=== PATIENT | male | born 1955 | race Caucasian/White ===

== ENCOUNTER 2017-01-07 19:10 | Inpatient (IN) | payer OTHER ==
[~2017-01-07] VITALS: Ht 175.3 cm; Wt 104.0 kg
[~2017-01-07 19:10] MED LIST: CARV25TA79 PO; DABIGATRAN ETEXILATE PO; DIGO125T73 PO; ENAL20TA77 PO; FURO40TA4 PO; IBUP800T25 PO; METH10TA97 PO; RANO10002 PO; SITA1TAB3 PO; SPIR25TA67 PO
[2017-01-07] MEDS ORDERED: SODIUM CHLORIDE 0.9% 500 ML BAG IV* STA (19:56)
[2017-01-07] MEDS ORDERED: VECURONIUM 100 MG in DEXTROSE 5% 100 ML IV ONE (19:56)
[2017-01-07] MEDS ORDERED: MIDAZOLAM (DRIP) 50 mg/50 mL 50 ML IV SCH (20:00)
[2017-01-07] MEDS ORDERED: FENTAnyl 50 MCG/ML VIAL IV PRN (20:00)
[2017-01-07] MEDS ORDERED: DOPamine-D5W 1.6 MG/ML 250 ML IV STA (20:03)
[2017-01-07] MEDS ORDERED: AMIODARONE 150MG/D5W BOLUS IV* STA (20:03)
[2017-01-07] MEDS ORDERED: AMIODARONE 900MG/D5W DRIP 500 ML IV STA (20:03)
[2017-01-07 20:24] LABS: ADD SCAN DIFF NO
[2017-01-07 20:27] LABS: BASOPHILS % 0.4 % (0.0-2.0); EOSINOPHILS # 0.1 10^3/ul (0.0-0.5); EOSINOPHILS % 0.6 % (0.0-7.0); HEMATOCRIT 37.1 % (42.0-52.0); HEMOGLOBIN 10.8 g/dl (14.0-18.0); LYMPHOCYTES # 4.8 10^3/ul (0.8-2.9); LYMPHOCYTES % 45.7 % (15.0-51.0); MEAN CORPUSCULAR HEMOGLOBIN 29.3 pg (29.0-33.0); MEAN CORPUSCULAR HGB CONC 29.1 g/dl (32.0-37.0); MEAN CORPUSCULAR VOLUME 100.8 fl (82.0-101.0); MEAN PLATELET VOLUME 10.1 fl (7.4-10.4); MONOCYTE # 0.7 10^3/ul (0.3-0.9); MONOCYTES % 7.1 % (0.0-11.0); NEUTROPHIL # 4.6 10^3/ul (1.6-7.5); NEUTROPHILS % 43.7 % (39.0-77.0); NUCLEATED RED BLOOD CELLS # 0.1 10^3/ul (0.0-0.0); PLATELET COUNT 408 10^3/UL (140-415); RED BLOOD COUNT 3.68 10^6/ul (4.70-6.10); RED CELL DISTRIBUTION WIDTH 15.9 % (11.5-14.5); WHITE BLOOD COUNT 10.5 10^3/ul (4.8-10.8)
[2017-01-07 20:37] LABS: ALBUMIN 3.4 g/dl (3.3-4.9); CHLORIDE 97 mmol/L (97-110); INR 3.56; PROTIME 36.2 Sec (12.2-14.2); PT RATIO 2.8; SODIUM 136 mmol/L (135-144)
[2017-01-07 20:39] LABS: CREATININE 3.07 mg/dl (0.61-1.24)
[2017-01-07 20:40] LABS: ALANINE AMINOTRANSFERASE 63 IU/L (13-69); ALKALINE PHOSPHATASE 218 IU/L (42-121); ANION GAP 31 (8-16); ASPARTATE AMINO TRANSFERASE 99 IU/L (15-46); BILIRUBIN,INDIRECT 0.2 mg/dl (0-1.1); BILIRUBIN,TOTAL 0.2 mg/dl (0.2-1.3); BLOOD UREA NITROGEN 66 mg/dl (7-20); CARBON DIOXIDE 15 mmol/L (21-31); GLUCOSE 165 mg/dl (70-220); PHOSPHORUS 8.8 mg/dl (2.5-4.9); TOTAL PROTEIN 7.6 g/dl (6.1-8.1)
[2017-01-07 20:41] LABS: CALCIUM 8.6 mg/dl (8.4-10.2); MAGNESIUM 2.7 mg/dl (1.7-2.5)
[2017-01-07 20:52] LABS: TROPONIN-I 0.048 ng/ml (0.00-0.12)
[2017-01-07 20:54] LABS: AADO2 Arterial 572.2 mmHg (7.0-24.0); Allen Test ACCEPTAB; Arterial Base Excess -24.8 mmol/L (-3.0-3); Arterial COHb 0.3 % (0.0-3.0); Arterial Fraction of Oxyhgb 75.7 % (93.0-99.0); Arterial HCO3 10.6 mmol/L (22.0-26.0); Arterial MetHb 0.5 % (0.0-1.5); Arterial Total Hemglobin 12.1 g/dl (12.0-18.0); MODE VENT - AC
[2017-01-07 21:04] LABS: ACETAMINOPHEN < 10.0 ug/ml (10.0-30.0); POTASSIUM 6.7 mmol/L (3.5-5.1); SALICYLATE < 1.0 mg/dl (5.0-30.0)
[2017-01-07] MEDS ORDERED: NA BICARBONATE 8.4% 50 ML SYG IV STA (21:06)
[2017-01-07] MEDS ORDERED: DEXTROSE 50% 50 ML SYRINGE IV STA (21:06)
[2017-01-07] MEDS ORDERED: CA GLUCONATE (GM) 10% 10ML INJ IV STA (21:06)
[2017-01-07] MEDS ORDERED: INSULIN REGULAR, HUMAN 100 UNIT/1 ML 3ML VIAL IV STA (21:06)
--- NOTE | 2017-01-07 21:26 | RADRPT ---
PROCEDURE: XR Chest. CLINICAL INDICATION: Cardiac arrest TECHNIQUE: AP view of the chest was obtained. COMPARISON: None available FINDINGS: ET tube is present with the tip 6 cm above the diaz. There are sternotomy wires and mediastinal c lips. There are atherosclerotic calcifications of the thoracic aorta. Cardiac silhouette is moder ately enlarged. There is vascular congestion and bilateral opacities suggestive of edema/congestive failure. There may be superimpose consolidation at the right lung base. There is a small to moderate right pleural effusion. IMPRESSION: Satisfactory ET tube placement. Cardiomegaly, with vascular congestion and bilateral opacities suggestive of edema/congestive failur e. Possible superimposed consolidation at the right lung base. Small to moderate right pleural effusion. RPTAT: HESO .Ramy Duckworth MD, Date Time Electronically viewed and signed by .Ramy Duckworth MD, on 01/07/2017 21:25 .O/
[2017-01-07 21:33] LABS: ETHANOL < 10.0 mg/dl
[2017-01-07] MEDS ORDERED: NORepinephrine 8MG/250 ML (PMX 250 ML IV STA (21:47)
[2017-01-07] MEDS ORDERED: SODIUM CHLORIDE 0.9% 1L BAG IV* STA (21:47)
[2017-01-07] MEDS ORDERED: CEFEPIME 2GM/50 ML (PMX) 50 ML IVPB STA (21:47)
[2017-01-07 21:54] LABS: PLATELET COUNT 437 10^3/UL (140-415)
[2017-01-07 21:58] LABS: INR 3.73; PROTIME 37.5 Sec (12.2-14.2); PT RATIO 2.9
[2017-01-07] MEDS ORDERED: CLINDAMYCIN 600 MG/D5W (PMX) 50 ML IVPB SCH (22:00)
[2017-01-07] MEDS ORDERED: VANCOMYCIN 1 GM (PMX) 250 ML IVPB ONE (22:00)
[2017-01-07 22:24] LABS: FIBRIN SPLIT PRODUCT >10 and <40 ug/ml (<10)
[2017-01-07 22:25] LABS: ADD UMIC YES; URINE BILIRUBIN (Dip) 1+ (NEGATIVE); URINE BLOOD (Dip) 3+ (NEGATIVE); URINE COLOR DK. YELLOW (YELLOW); URINE GLUCOSE (Dip) NEGATIVE (NEGATIVE); URINE KETONES (Dip) TRACE (NEGATIVE); URINE LEUKOCYTE ESTERASE (Dip) NEGATIVE (NEGATIVE); URINE NITRITE (Dip) NEGATIVE (NEGATIVE); URINE TOTAL PROTEIN (Dip) 2+ (NEGATIVE); URINE UROBILINOGEN (Dip) 0.2 E.U./dL (0.1-1.0)
--- NOTE | 2017-01-07 22:39 | ERA ---
ER Documentation Chief Complaint Date/Time DATE: 01/07/17 TIME: 22:20 Chief Complaint cardiac arrest/ respiratory arrest HPI 61-year-old male history of cardiomyopathy, cardiac disease, on anticoagulants who presents with cardiac arrest. EMS gives most of the report. It appears the patient had an in-home cardiac arrest. The patient was asystolic upon arrival. They had return of spontaneous circulation upon arrival to the ER however patient rapidly lost pulses upon movement into the room. Remainder of HPI is very limited given critical nature of the patient. ROS Critical patient Medications Home Meds Reported Medications [Dabigatran etexilate] No Conflict Check, 150 MG PO BID 04/26/12 Digoxin (Digoxin) 125 Mcg Tablet, 125 MCG PO DAILY 04/26/12 Ibuprofen* (Ibuprofen*) 800 Mg Tablet, 800 MG PO BID 04/26/12 Ranolazine* (Ranexa*) 1,000 Mg Tab.sr.12h, 1000 MG PO BID 04/26/12 Spironolactone* (Aldactone*) 25 Mg Tablet, 25 MG PO DAILY 04/26/12 Furosemide* (Furosemide*) 40 Mg Tablet, 40 MG PO DAILY 04/26/12 Carvedilol* (Carvedilol*) 25 Mg Tablet, 25 MG PO BID 04/26/12 Sitagliptin Phos-Metformin Hcl (Janumet) 1 Tab Tablet, 1 TAB PO AM 04/26/12 Enalapril (Enalapril) 20 Mg Tablet, 20 MG PO BID 04/26/12 Methimazole* (Tapazole*) 10 Mg Tablet, 10 MG PO BID 04/26/12 Allergies Allergies: Coded Allergies: No Known Allergy (Unverified , 04/25/12) PMhx/Soc History of Surgery: Yes (2 stent placement approx 9 years ago) Anesthesia Reaction: No Hx Neurological Disorder: No Hx Cardiac Disorders: Yes (VA, HTN, hyperlipidemia) Hx Psychiatric Problems: No Hx Miscellaneous Medical Probl: No Hx Alcohol Use: No Hx Substance Use: No Hx Tobacco Use: No (hx 2-3 packs/day. Quit 3-4 months ago) Physical Exam Vitals Vital Signs Date Time Temp Pulse Resp B/P Pulse Ox O2 Delivery O2 Flow Rate FiO2 01/07/17 19:15 98.1 0 0 196/159 0 Physical Exam General: Unresponsive Head: Normocephalic, atraumatic Eyes: Fixed and dilated pupils ENT: Moist mucous membranes, significant vomitus in the oral cavity Neck: Supple, no lymphadenopathy Respiratory: No spontaneous respiratory activity Cardiovascular: No spontaneous cardiac activity Abdominal: Soft, non-protuberant, no pulsatile mass : Deferred MSK: No spontaneous motor activity Neurologic: No spontaneous neurologic activity Skin: No evidence of trauma Result Diagram: 01/07/17212901/07/171941 Results 24 hrs Laboratory Tests Test 01/07/17 19:42 01/07/17 19:56 01/07/17 21:30 Acetaminophen Level < 10.0ug/ml Activated Partial Thromboplast Time 90.0Sec Pending Alanine Aminotransferase (ALT/SGPT) 63IU/L Albumin 3.4g/dl Albumin/Globulin Ratio 0.80 Alkaline Phosphatase 218IU/L Anion Gap 31 Aspartate Amino Transf (AST/SGOT) 99IU/L Basophils # 0.010^3/ul Basophils % 0.4% Blood Urea Nitrogen 66mg/dl Calcium Level 8.6mg/dl Carbon Dioxide Level 15mmol/L Chloride Level 97mmol/L Creatinine 3.07mg/dl Direct Bilirubin 0.00mg/dl Eosinophils # 0.110^3/ul Eosinophils % 0.6% Ethyl Alcohol Level < 10.0mg/dl Globulin 4.20g/dl Glucose Level 165mg/dl Hematocrit 37.1% Hemoglobin 10.8g/dl INR International Normalized Ratio 3.56 3.73 Indirect Bilirubin 0.2mg/dl Lymphocytes # 4.810^3/ul Lymphocytes % 45.7% Magnesium Level 2.7mg/dl Mean Corpuscular Hemoglobin 29.3pg Mean Corpuscular Hemoglobin Concent 29.1g/dl Mean Corpuscular Volume 100.8fl Mean Platelet Volume 10.1fl Monocytes # 0.710^3/ul Monocytes % 7.1% Neutrophils # 4.610^3/ul Neutrophils % 43.7% Nucleated Red Blood Cells # 0.110^3/ul Nucleated Red Blood Cells % 1.0/100WBC Phosphorus Level 8.8mg/dl Platelet Count 09614^3/UL 41087^3/UL Potassium Level 6.7mmol/L Prothrombin Time 36.2Sec Pending Prothrombin Time Ratio 2.8 2.9 Red Blood Count 3.6810^6/ul Red Cell Distribution Width 15.9% Salicylates Level < 1.0mg/dl Sodium Level 136mmol/L Total Bilirubin 0.2mg/dl Total Protein 7.6g/dl Troponin I 0.048ng/ml White Blood Count 10.510^3/ul Arterial Blood HCO3 10.6mmol/L Arterial Blood Base Excess -24.8mmol/L Arterial Blood Oxygen Saturation 76.3mmHG Nicho Test ACCEPTAB Arterial Blood Gas Puncture Site Right Radial Arterial Blood Carboxyhemoglobin 0.3% Arterial Blood Date Drawn 01/07/2017 8:48:05 PM Arterial Blood Methemoglobin 0.5% Arterial Blood pCO2 (Temp correct) 73.3mmhg Arterial Blood pH (Temp corrected) 6.777 Arterial Blood pO2 (Temp corrected) 67.5mmHG Blood Gas A-a O2 Differential 572.2mmHg Blood Gas Actual Respiration Rate 16 Blood Gas Critical Value Read Back Kathie WARD MD Blood Gas Modality VENT - AC Blood Gas Notified Time 01/07/2017 8:53:53 PM Blood Gas Notified Whom MG Blood Gas Respiration Rate 16.0 Blood Gas Specimen Source Blood arterial Blood Gas Temperature 37.0C Blood Gas Tidal Volume 550.0mL FiO2 100.0% Oxyhemoglobin Percent 75.7% Total Hemoglobin 12.1g/dl D-Dimer Pending Fibrinogen 431.0mg/dl Plasma Fibrin Degradation Products Pending Thrombin Time Pending Current Medications Medications (Trade) Dose Ordered Sig/Aidee Route PRN Reason Start Time Stop Time Status Last Admin Dose Admin Sodium Chloride (NS) 500 ml ONCE STAT IV* 01/07/17 19:56 01/07/17 20:04 DC Fentanyl 25 mcg 25 mcg Q10M PRN IV SEDATION 01/07/17 20:00 Midazolam HCl 50 ml @ 2 mls/hr ONCE IV 01/07/17 20:00 Vecuronium Superior/Dextrose (Norcuron/D5W) 100 ml @ 0 mls/hr Q0M ONCE IV 01/07/17 19:56 01/07/17 20:04 DC Amiodarone HCl 100 ml 100 ml ONCE STAT IV* 01/07/17 20:03 01/07/17 20:05 DC Amiodarone HCl 500 ml @ 0 mls/hr ONCE STAT IV 01/07/17 20:03 01/07/17 20:05 DC Dopamine HCl/ Dextrose 250 ml @ 0 mls/hr ONCE STAT IV 01/07/17 20:03 01/07/17 20:05 DC 01/07/17 22:12 Insulin Human Regular (Humulin R) 10 unit ONCE STAT IV 01/07/17 21:06 01/07/17 21:07 DC 01/07/17 21:24 Dextrose (D50w Syringe) 50 ml ONCE STAT IV 01/07/17 21:06 01/07/17 21:07 DC 01/07/17 21:24 Sodium Bicarbonate (Na Bicarb 8.4% Syg) 50 ml ONCE STAT IV 01/07/17 21:06 01/07/17 21:07 DC 01/07/17 21:24 Calcium Gluconate (Ca Gluc) 1 gm ONCE STAT IV 01/07/17 21:06 01/07/17 21:07 DC 01/07/17 21:25 Sodium Chloride 3100 ml 3,100 ml BOLUS OVER 2 HOURS STAT IV* 01/07/17 21:47 01/07/17 21:51 DC 01/07/17 21:57 Norepinephrine 250 ml @ 7.5 mls/hr ONCE STAT IV 01/07/17 21:47 01/09/17 07:06 01/07/17 22:09 Cefepime HCl 50 ml @ 100 mls/hr ONCE STAT IVPB 01/07/17 21:47 01/07/17 22:16 DC Vancomycin HCl 250 ml @ 125 mls/hr ONCE ONCE IVPB 01/07/17 22:00 01/07/17 23:59 Clindamycin HCl/ Dextrose (Cleocin 600 Mg/ D5W (Pmx)) 50 ml @ 50 mls/hr ONCE IVPB 01/07/17 22:00 01/07/17 22:59 Procedures/MDM EKG, MONITORS, & DIAGNOSTIC IMAGING: EKG #1: EKG: I reviewed and interpreted a 12-lead EKG. Rhythm: Junctional rhythm Ectopy: None Intervals: No abnormalities ST segments: No elevations or depressions T waves: No contiguous inversions EKG #2: EKG: I reviewed and interpreted a 12-lead EKG. Rhythm: Wide-complex bradycardia Ectopy: None ST segments: No elevations or depressions T waves: No contiguous inversions Chest x-ray: I reviewed and interpreted a 1 view of the chest Mediastinum: No enlargement Cardiac silhouette: cardiomegaly Airspace: Interstitial process and pulmonary edema bilaterally, no pneumothorax Bones: No evidence of fracture PROCEDURES: Intubation Note: Indication: Airway protection Consent: This was an emergent situation, implied consent was observed RSI Medications: Etomidate 20 mg, Rocuronium 100 mg Tube size: 7.5 Secured at: 22 at the lip Procedure: Patient had a difficult airway given significant vomitus within the airway itself. Endotracheal intubation was performed using the Glidescope. Visualization of the arytenoids was obtained with suctioning. I was able to pass the endotracheal tube through the cords. The tube was then secured. The patient had bilateral breath sounds with color change. The endotracheal tube was confirmed using direct laryngoscopy after insertion given significant vomitus. Central Line Note: Consent: Emergent Indication: Critically ill patient requiring specialized vascular access for fluid or pressor management Location: Right femoral vein Procedure: Sterile procedure was observed throughout insertion of the central line. The insertion site was prepped with sterile solution. Ultrasound-guided identification of the vein was performed. Insertion of a needle into the vein was obtained with return of dark, nonpulsatile blood. The wire was then threaded through the needle without complication. The wire was then identified within the vein using ultrasound. A small skin incision was made, the needle was removed intact, dilation of the vein was performed and insertion of a triple lumen catheter was completed. The catheter was then sutured to the skin. All [address] back and flushed without difficulty. A sterile dressing was applied. The patient tolerated the procedure well there were no complications. Emergency Bedside Ultrasound: The patient was verbally consented prior to procedure and understands the risks , benefits, and alternatives. The patient is agreeable to procedure and has given verbal consent. Indication: Central line Probe Type: Linear Findings: Dynamic ultrasound utilizing compressive technique with both linear and horizontal views, additional images showing wire within the venous system were obtained. The images were not saved given critical nature. The patient tolerated the procedure well and there were no complications. Emergency Bedside Ultrasound: Indication: Cardiac arrest Probe Type: Cardiac Findings: Diffuse hypokinesis, no pericardial effusion The images were saved along with patient information, printed out, secured to paper and placed in the patient's physical chart. The patient tolerated the procedure well and there were no complications. LAB INTERPRETATION: No leukocytosis, hemoglobin of 10, arterial blood gas showing significant acidosis that seems to be metabolic, INR elevated and PTT elevated concerning for early DIC, hyperkalemia and creatinine elevation of 3.07, K of 6.7 MEDICAL DECISION MAKING: The patient presents in cardiac arrest. The patient had bradycardia in the field, return of spontaneous circulation and cardiac arrest again upon arrival to the emergency department. This appears to be a cardiogenic etiology. The patient had no recent report of shortness of breath, pleuritic pain, no recent reported fevers. The patient clearly has evidence of aspiration upon arrival. ER COURSE: Upon arrival the patient did not have pulses. He was placed on the bed. ACLS was initiated and directed by myself. The patient had pads placed was placed on the monitor. The patient continued to have asystolic arrest and intermittent PEA with significant bradycardia. Multiple rounds of epinephrine, magnesium, calcium were provided. We intermittently had return of spontaneous circulation. Please review nursing documentation for actual timing. During these episodes the patient had bradycardia. Multiple efforts were attempted including transcutaneous pacing. There was electrical capture without physiologic capture. This seemed to be inconsistent. The patient was then started on dopamine. A central line was placed and the patient was started on dopamine centrally. This seemed to improve the patient's bradycardia and hypotension. The patient then developed a wide-complex rhythm. The patient was initially stable with his wide-complex and electrical cardioversion was performed on 120 J without success. The patient became hypotensive and was defibrillated at 200 J without success. The patient then had a blood pressure and was again attempted cardioversion at 200 J without success. Further cardioversion was not indicated given futile nature. Given the wide complex initiation of amiodarone was started. However after conversation with interventional cardiology recommendation was to hold on amiodarone and continue with dopamine. I did reach out to Dr. Betancourt who is on-call with interventional cardiology. The patient is too unstable to go to the Business Project Analyst. The patient has stabilized with dopamine at this time. Dr. Betancourt recommends conservative management without Business Project Analyst activation at this time. The patient need stabilization in the ICU prior to interventional cardiology involvement. Hyperkalemia treated with insulin, glucose, calcium, bicarb. No indication for Kayexalate given patient's critical nature risk of bowel ischemia. The patient did have an aspiration event. The patient had blood cultures, lactic acid. He has received a 30/kg bolus of saline. Vancomycin, cefepime, Clinda provided. We have discussed initiation of hypothermia protocol. However, the patient still has hemodynamic instability despite multiple fluids and pressors. This is an exclusion criteria. Additionally. The patient has early evidence of DIC. This would also be an exclusion criteria. We will continue to monitor this process. Based on her protocol hypothermia can be initiated within 6 hours of return of spontaneous circulation. The patient will require stabilization and rule out of DIC. I kept the patient and/or family informed of laboratory and diagnostic imaging results throughout the emergency room course. We discussed goals of care multiple times. I discussed the futility and the likely poor outcome of this patient's clinical presentation. The family still wishes aggressive care at this time. DISPOSITION PLAN: ICU CONSULTATION: Accepting care team and consultations: I discussed the current laboratory data, diagnostic imaging and emergency care provided. Admitting team: Dr. Lomeli Admitting team indication: Insurance directed unstable for transfer Consulting services: Dr. Mace has been paged Critical Care Note: Total time: 75 minutes Indication/Organ System Threat: Cardiac arrest with return of spontaneous circulation I spent the above amount of critical care time with the patient, not including billable procedures. This included chart review, consultations, repeat bedside evaluations, and titration of appropriate medications to prevent cardiopulmonary or respiratory collapse. Departure Diagnosis: Primary Impression: Aspiration pneumonia Qualified Code: J69.0 - Aspiration pneumonia, unspecified aspiration pneumonia type, unspecified laterality, unspecified part of lung Additional Impressions: Cardiac arrest Bradycardia Acute renal failure Qualified Code: N17.9 - Acute renal failure, unspecified acute renal failure type Hyperkalemia Condition: Critical CHARO WARD MD Jan 07, 2017 22:31
[2017-01-07 22:45] LABS: BARBITURATES NEGATIVE (NEGATIVE); BENZODIAZEPINES NEGATIVE (NEGATIVE); CANNABINOIDS NEGATIVE (NEGATIVE); COCAINE NEGATIVE (NEGATIVE); OPIATES POSITIVE (NEGATIVE)
[2017-01-07 22:55] LABS: ICTOTEST NEGATIVE (NEGATIVE); URINE RBCS >200 /HPF (0)
[2017-01-07 22:58] LABS: BACTERIA,URINE MANY; TRANSITIONAL EPI CELLS,URINE MODERATE
[2017-01-07 22:59] LABS: SPERM,URINE MANY
[2017-01-07] MEDS ORDERED: NA BICARBONATE 8.4% 50 ML SYG IV ONE (23:00)
[2017-01-07] MEDS ORDERED: SOD CHLORIDE 0.45% 1,000 ML IV SCH (23:00)
[2017-01-07 23:03] LABS: D-DIMER > 10000.00 ng/ml (<460); THROMBIN TIME > 100.0 SEC (13.8-19.1)
[2017-01-07 23:55] LABS: PROTEIN URINE > 200.0 mg/dl (0.0-9.9)
[2017-01-08] VITALS (23 sets, daily range): BP systolic 81–142; BP diastolic 61–115; PULSE 0–114; RESP 0–62; Ht 175.3 cm; Wt 104.0 kg
[2017-01-08] MEDS ORDERED: DOPamine-D5W 1.6 MG/ML 250 ML ONE
[2017-01-08] MEDS ORDERED: CA CHLORIDE 10% 10 ML SYRINGE ONE
[2017-01-08] MEDS ORDERED: ROCURONIUM 50 MG INJ ONE
[2017-01-08] MEDS ORDERED: MAGNESIUM SULFATE 1 GM/100 ML D5W IVPB ONE
[2017-01-08] MEDS ORDERED: ATROPINE 1 MG/10 ML SYRINGE ONE
[2017-01-08] MEDS ORDERED: AMIODARONE 900 MG INJ ONE
[2017-01-08] MEDS ORDERED: NORepinephrine 8MG/250 ML BAG ONE
[2017-01-08] MEDS ORDERED: ETOMIDATE 20 MG INJ ONE
[2017-01-08] MEDS ORDERED: PHENYLephrine 20MG IN 250 ML 250 ML ONE (01:23)
[2017-01-08] MEDS ORDERED: VASOPRESSIN 60 UNIT in DEXTROSE 5% 57 ML IV SCH (01:30)
[2017-01-08] MEDS ORDERED: PHENYLephrine 20MG IN 250 ML 250 ML IV SCH (01:30)
[2017-01-08] MEDS ORDERED: NORepinephrine 8MG/250 ML (PMX 250 ML IV SCH (02:00)
[2017-01-08] MEDS ORDERED: EPINEPHrine 4 MG in DEXTROSE 5% 246 ML IV SCH (03:00)
[2017-01-08] MEDS ORDERED: AMIODARONE 900 MG in DEXTROSE 5% 482 ML IV SCH (03:30)
[2017-01-08] MEDS ORDERED: EPINEPHrine 0.1 MG/ML SYG ONE ×2 (04:20)
[2017-01-08] MEDS ORDERED: PHENYLephrine 40 MG in DEXTROSE 5% 496 ML IV SCH (07:00)
--- NOTE | 2017-01-08 19:21 | HP ---
DATE OF ADMISSION: 01/07/2017 History and physical for completing medical record as the patient prior to seen by me. The brief history and physical is from the medical record and also discussion with ER physician ____ _ and review of medical record. CHIEF COMPLAINT: The patient was a 61-year-old gentleman with history of coronary artery disease, h istory of myocardial infarction, PCI, ischemic cardiomyopathy, was admitted back in 2011 for syncope and at that time his EF was only 35%. The patient was seen by Dr. Millan during that admissi on. The patient subsequently never got admitted at [facility] and was brought int o ER yesterday after he had a cardiac arrest at home. Patient was ACT upon arrival and CPR was appa rently performed by [place]. The patient had pulseless electrical activity. The patient apparently wa s found supine on the floor at home. Patient also was noted to have vomit coming out of the mouth o n scene. The patient remained in pulseless electric activity en route to [facility] ER. T he patient subsequently had spontaneous circulation upon arrival to ER; however, patient apparently lost pulse in the ER and again had CPR done. EMERGENCY ROOM COURSE: Dr. Betancourt, who was distributor sales consultant for cardiology was called. The patient was to o unstable to go to the dental laboratory supervisor. The patient had potassium of 6.7, BUN of 66, creatinine of 3. AB G revealed pH of 6.7 with pCO2 of 73, pO2 of 67.5. The patient was intubated and the patient was al so noted to have possible aspiration and received IV vancomycin, cefepime and clindamycin. Dr. Tina mina and group were called for vent management. The patient was subsequently transferred to ICU and at 0311 the patient went into PEA and had multiple attempts to resuscitate him. Unfortunately, all attempts failed and the patient was pronounced at 0350. Family was at bedside during that time. PAST MEDICAL HISTORY: As stated above. In addition, the patient also has history of diabetes, hypo thyroidism, chronic Afib, hypertension. ALLERGIES: NONE. PAST SURGICAL HISTORY: As per the record, the patient has WILDLIFE VETERINARIAN and stenting in 2006. SOCIAL HISTORY: Denied any history of smoking or alcohol abuse. FAMILY HISTORY: Mother had history of stroke. REVIEW OF SYSTEMS: Could not be completed. PHYSICAL EXAM: Could not be done. IMPRESSION: 1. Multiple cardiopulmonary arrests. 2. Coronary artery disease. 3. Cardiomyopathy. 4. Atrial fibrillation. 5. Diabetes. 6. Possible aspiration. Plan and hospital course as in HPI. CONSULTATION OBTAINED: Dr. Mace and group from pulmonary standpoint and Dr. Dejon Ragsdale from renal standpoint and Dr. Betancourt from cardiac standpoint. Echo and serial troponins were ordered; maddy r, the patient prior to those tests. Dictated By: MAK RICKS/NAYLA Conf#: [id number] DID#: [id number]
--- NOTE | 2017-01-08 20:38 | DES ---
DATE OF ADMISSION: 01/07/2017 DATE OF : 01/08/2017 CAUSE OF : Multiple cardiac arrests, most probably secondary to underlying coronary artery dis ease. The patient has history of coronary artery disease status post PCI back in 2011. The patient 's further cardiac history could not be obtained as the patient did not have any admission at [facility] since 2011 and was admitted after he had a cardiac arrest. OTHER DIAGNOSES: 1. Chronic atrial fibrillation. 2. Diabetes. 3. Possible aspiration. REASON FOR ADMISSION AND HOSPITAL COURSE: The patient was a 61-year-old gentleman with history of c oronary artery disease, status post PCI, cardiomyopathy, EF of 30% back in 2011, history of chronic AFib, diabetes and hypertension. The patient was brought into ER after he was found unresponsive at his home. Paramedics were called and patient had cardiac arrest. CPR was initiated, and patient w as brought into [facility] ER. Dr. Betancourt was called from a cardiac standpoint, and the patient unresponsive and rapidly became hypotensive with a blood pressure going as low as 82/45. The patien t also was noted to have a lactic acid of ____. Potassium was 6.7, BUN was 66, creatinine 3. The p atient received IV vanco, clindamycin, and cefepime in the ER and also IV sodium bicarbonate and tee cium gluconate. The patient was also given a loading dose of amiodarone and amiodarone drip. Dr. Silvina uriarte was called. She recommended conservative treatment. The patient's chest x-ray revealed pul monary edema, superimposed right lung base consolidation. Patient's initial white count was 10.5 wi th no left shift. Troponin was negative. The patient was transferred to ICU; however, after [facility], he had multiple episodes of cardiac arrest and could not be revived and was pronounced at 03 50 on 01/08/2017. The patient's labs subsequently also came back positive for DIC with PTT of 90 an d D-dimer more than 10,000. However, fibrinogen level was 431. The patient was not deemed a candid ate for hypothermia protocol as per ER note. ____. Dictated By: MAK RICKS/NTS Conf#: [id number] DID#: [id number]
== END 2017-01-08 04:50 | disposition expired | DRG 208 ==
LOC: E/R 19:10 → ICU 22:50
PROVIDERS: ADMIT Internal Medicine; ATTEND Internal Medicine
PROC: 0BH17EZ Insertion of Endotracheal Airway into Trachea, Via Natural or Artificial Opening (ICD-10-PCS; principal; 2017-01-07)
PROC: 5A1935Z Respiratory Ventilation, Less than 24 Consecutive Hours (ICD-10-PCS; 2017-01-07)
PROC: 5A2204Z Restoration of Cardiac Rhythm, Single (ICD-10-PCS; 2017-01-07)
PROC: 5A12012 Performance of Cardiac Output, Single, Manual (ICD-10-PCS; 2017-01-07)
PROC: 02HV33Z Insertion of Infusion Device into Superior Vena Cava, Percutaneous Approach (ICD-10-PCS; 2017-01-07)
DX: J69.0 Pneumonitis due to inhalation of food and vomit (principal); D65 Disseminated intravascular coagulation [defibrination syndrome]; I46.9 Cardiac arrest, cause unspecified; I95.9 Hypotension, unspecified; E87.5 Hyperkalemia; I48.2 Chronic atrial fibrillation; I25.10 Atherosclerotic heart disease of native coronary artery without angina pectoris; Z95.5 Presence of coronary angioplasty implant and graft; I10 Essential (primary) hypertension; E11.9 Type 2 diabetes mellitus without complications; I51.7 Cardiomegaly
CPT/HCPCS: 31500; 36415; 36600; 71010; 76937; 80053; 80306; 80307; 81001; 81003; 82803; 83605; 83735; 84100; 84155; 84300; 84484; 85025; 85049; 85362; 85378; 85384; 85610; 85670; 85730; 86850; 86900; 86901; 87040; 87081; 87086; 89190; 92950; 93005; 94002; 94003; 94770; 96365; 96375; J0171; J0282; J0461; J0610; J0692; J1265; J1815; J2370; J3370; J3475; J7030; J7040; J7070